=== PATIENT | male | born 1970 | race Caucasian/White ===

== ENCOUNTER 2017-03-13 20:33 | Emergency (ER) | payer OTHER ==
[~2017-03-13] VITALS: Ht 175.3 cm; Wt 90.4 kg
[2017-03-13 21:54] LABS: EOSINOPHIL (%) 0.6 % (0-5); HEMATOCRIT 38.8 % (38.0-50.0); IMMATURE GRANULOCYTE (%) 0.6 % (0.0-0.7); INSTRUMENT ABS NEUTROPHIL CT 2.8 K/uL; LYMPHOCYTE COUNT 1.7 K/uL (1.0-2.8); MCH 30.9 PG (29.0-34.0); MCV 90.9 FL (86-99); MEAN PLAT.VOLUME 9.9 uM^3 (9.0-12.4); MONOCYTE (%) 8.7 % (3-12); MONOCYTE COUNT 0.4 K/uL (0-0.8); NEUTROPHIL (%) 56.1 % (45-76); NEUTROPHIL COUNT 2.8 K/uL (1.8-6.4); PLATELET COUNT 265 K/uL (156-360); RBC DIS.WIDTH-CV 13.3 % (11.8-14.6); RBC DIS.WIDTH-SD 44.5 % (39-53); RED BLOOD COUNT 4.27 M/uL (4.00-5.50)
[2017-03-13 22:11] LABS: CHLORIDE 106 mEq/L (99-109); POTASSIUM 4.8 mEq/L (3.7-5.4); SODIUM 140 mEq/L (136-147)
[2017-03-13 22:13] LABS: GLUCOSE 91 mg/dL (70-99)
[2017-03-13 22:14] LABS: ANION GAP 10 MEQ/L (2-14)
[2017-03-13 22:16] LABS: SERUM ETHYL ALCOHOL 100 mg/dL
[2017-03-13 22:16] LABS: AMPHETAMINE NEGATIVE (500 ng/mL); BARBITURATES NEGATIVE (200 ng/mL); BENZODIAZEPINES PRESUMPTIVE POSITIVE (150 ng/mL); COCAINE NEGATIVE (150 ng/mL); INTERNAL CONTROLS VALID? YES; METHADONE PRESUMPTIVE POSITIVE (200 ng/mL); METHAMPHETAMINE NEGATIVE (500 ng/mL); OPIATES (MORPHINE) NEGATIVE (100 ng/mL); OXYCODONE PRESUMPTIVE POSITIVE (100 ng/mL); PHENCYCLIDINE NEGATIVE (25 ng/mL); PROPOXYPHENE NEGATIVE (300 ng/mL); THC CANNABINOIDS NEGATIVE (50 ng/mL); TRICYCLIC ANTIDEPRESSANTS NEGATIVE (300 ng/mL)
[2017-03-13 22:17] LABS: ADD MEDTOX COMMENT Y
[2017-03-13 22:18] LABS: UREA NITROGEN (BUN) 21 mg/dL (9-23)
[2017-03-13 22:19] LABS: GFR ESTIMATE (CALCULATED) > 59 mL/min/
[2017-03-13 23:06] LABS: BENZODIAZEPINES QUANT VALUE 0 NG/ML; BENZODIAZEPINES, URINE SCREEN Negative (200 ng/mL)
[2017-03-14] MEDS ORDERED: METHADONE10 MG PO (05:56)
[2017-03-14] MEDS ORDERED: LIPITOR10 MG PO (05:56)
[2017-03-14] MEDS ORDERED: COUMADIN6 MG PO (05:56)
[2017-03-14] MEDS ORDERED: EFFEXOR XR150 MG PO (05:57)
[2017-03-14] MEDS ORDERED: PREDNISONE5 MG PO (05:57)
[2017-03-14] MEDS ORDERED: WELLBUTRIN SR150 MG PO (05:57)
[2017-03-14] MEDS ORDERED: LISINOPRIL-HCT1 EAC3 PO (05:58)
[2017-03-14] MEDS ORDERED: OXYCONTIN15 MG PO (05:58)
[2017-03-14] MEDS ORDERED: EFFEXOR XR37.5 MG PO (05:59)
[2017-03-14 06:57] LABS: INTER. NORMALIZED RATIO 2.7; PROTHROMBIN TIME 28.1 (9.2-11.2); PTT 41.4 (25-32)
[2017-03-14 14:08] VITALS: BP 127/86
== END 2017-03-14 14:30 ==
LOC: EME 20:33
PROVIDERS: Emergency Medicine
DX: F32.9 Major depressive disorder, single episode, unspecified (principal); R45.851 Suicidal ideations; R10.9 Unspecified abdominal pain; R51 Headache; F10.99 Alcohol use, unspecified with unspecified alcohol-induced disorder; Y90.5 Blood alcohol level of 100-119 mg/100 ml; G89.29 Other chronic pain; Z79.891 Long term (current) use of opiate analgesic; D68.51 Activated protein C resistance; Z79.01 Long term (current) use of anticoagulants; Z79.52 Long term (current) use of systemic steroids; Z87.891 Personal history of nicotine dependence
CPT/HCPCS: 70450; 80048; 84999; 85025; 85610; 85730; 90837; 94640; 99281; 99285; G0480; J7512